=== PATIENT | female | born 1935 | race Caucasian/White ===

== ENCOUNTER 2021-03-28 08:33 | Outpatient (CLI) | payer MEDICARE, BC, SELFPAY ==
--- NOTE | 2021-03-28 09:00 | XR_ITS ---
WS: [id number] KNEE RIGHT TECHNIQUE: 3 views of the right knee CLINICAL INFORMATION: 6 weeks Rt knee pain COMPARISON: None. FINDINGS: Osteopenia. Moderate tricompartmental arthritis with joint space narrowing. Chondrocalcinosis. No acu te fractures. No significant effusion. XR/XR knee RT 3V* [id number] IMPRESSION: Moderate tricompartmental arthritis. No acute fractures. Kellgren-Roderick Classification: grade 3 (moderate): moderate multiple osteoph ytes, definite narrowing of joint space and some sclerosis and possible deformi ty of bone ends
== END 2021-03-28 08:34 | disposition home or self-care (01) ==
PROVIDERS: Visit Provider Family Medicine Adult Medicine
DX: M25.561 Pain in right knee (principal); M17.11 Unilateral primary osteoarthritis, right knee
CPT/HCPCS: 73562

== ENCOUNTER → 2021-04-19 10:13 | Outpatient (BNVA) | payer MEDICARE, BC, SELFPAY | PROVIDERS: PCP Family Medicine; Visit Provider Family Medicine | DX: I10 Essential (primary) hypertension (principal); M15.9 Polyosteoarthritis, unspecified; E66.9 Obesity, unspecified | CPT/HCPCS: 80053; 80061; 82043; 85025 ==

== ENCOUNTER → 2021-10-17 08:45 | Outpatient (BNVA) | payer MEDICARE, BC, SELFPAY | PROVIDERS: PCP Family Medicine; Visit Provider Family Medicine | DX: K21.9 Gastro-esophageal reflux disease without esophagitis (principal); F32.9 Major depressive disorder, single episode, unspecified; I10 Essential (primary) hypertension; R60.0 Localized edema; F32.89 Other specified depressive episodes; M15.9 Polyosteoarthritis, unspecified | CPT/HCPCS: 80048 ==

== ENCOUNTER → 2022-04-18 09:34 | Outpatient (BNVA) | payer MEDICARE, BC, SELFPAY | PROVIDERS: PCP Family Medicine; Visit Provider Family Medicine | DX: I10 Essential (primary) hypertension (principal); R53.83 Other fatigue | CPT/HCPCS: 80053; 80061; 84439; 84443; 85025 ==

== ENCOUNTER → 2022-07-22 10:31 | Outpatient (BNVA) | payer MEDICARE, BC, SELFPAY | PROVIDERS: PCP Family Medicine; Visit Provider Family Medicine | DX: E78.5 Hyperlipidemia, unspecified (principal) | CPT/HCPCS: 80061 ==

== ENCOUNTER → 2023-01-20 10:21 | Outpatient (BNVA) | payer MEDICARE, BC, SELFPAY | PROVIDERS: PCP Family Medicine; Visit Provider Family Medicine | DX: R60.0 Localized edema (principal); K21.9 Gastro-esophageal reflux disease without esophagitis; F32.9 Major depressive disorder, single episode, unspecified; I10 Essential (primary) hypertension | CPT/HCPCS: 80053 ==

== ENCOUNTER → 2023-07-16 10:57 | Outpatient (BNVA) | payer MEDICARE, BC, SELFPAY | PROVIDERS: PCP Family Medicine; Visit Provider Family Medicine | DX: I10 Essential (primary) hypertension (principal) | CPT/HCPCS: 80053; 80061; 82043; 85025 ==

== ENCOUNTER → 2024-03-29 12:44 | Outpatient (BNVA) | payer MEDICARE, BC, SELFPAY | PROVIDERS: PCP Family Medicine; Visit Provider Family Medicine | DX: R30.0 Dysuria (principal) | CPT/HCPCS: 81000; 87086 ==

== ENCOUNTER → 2024-06-21 13:40 | Outpatient (BNVA) | payer MEDICARE, BC, SELFPAY | PROVIDERS: PCP Family Medicine; Visit Provider Family Medicine | DX: I10 Essential (primary) hypertension (principal); K21.9 Gastro-esophageal reflux disease without esophagitis; N81.4 Uterovaginal prolapse, unspecified; R60.0 Localized edema | CPT/HCPCS: 80048; 85025 ==

== ENCOUNTER 2024-08-10 06:41 | Emergency (ER) | payer BC, MEDICARE, SELFPAY ==
[2024-08-10 06:45] VITALS: BP 129/74; PULSE 83; RESP 18; TEMP 36.7; O2SAT 90; BMI 31.2
--- NOTE | 2024-08-10 06:58 | XRR_ITS ---
PROCEDURE INFORMATION: Exam: XR Chest Exam date and time: 08/10/2024 7:35 AM Age: 88 years old Clinical indication: Other: Weakness TECHNIQUE: Imaging protocol: Radiologic exam of the chest. Views: 1 view. COMPARISON: No relevant prior studies available. FINDINGS: Lungs: The lungs are hyperinflated. No focal consolidation is appreciated. Pleural spaces: Unremarkable. No pleural effusion. No pneumothorax. Heart/Mediastinum: The heart is slightly enlarged. There is calcified plaque involving the aorta. Bones/joints: Unremarkable. XR/XR chest 1V portable [id number] IMPRESSION: 1. Mild cardiomegaly. 2. Lung hyperinflation.
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
[2024-08-10] MEDS: sodium chloride 0.9% 1,000 ML 999 ML IV (07:09)
[2024-08-10 07:11] LABS: Basophils % 0.5 %; Eosinophils % 0.9 %; Hematocrit 41.1 % (36-47); Lymphocytes # 0.9 10^3/uL (0.8-4.8); Lymphocytes % 20.6 %; Mean Corpuscular HGB Conc 34.1 g/dL (30-55); Mean Corpuscular Hemoglobin 30.1 pg (27-33); Mean Corpuscular Volume 88.4 fl (85-98); Mean Platelet Volume 9.9 fL (7.4-10.4); Monocytes # 0.4 10^3/uL (0.2-0.9); Monocytes % 7.9 %; Neutrophils # 3.07 10^3/uL (1.8-7.7); Neutrophils % 69.6 %; Nucleated Red Blood Cells % 0 %; Platelet Count 147 10^3/cmm (157-399); Red Blood Count 4.65 10^6/uL (3.85-5.65); Red Cell Distribution Width 12.7 % (12.1-15.1); White Blood Count 4.41 10^3/uL (3.29-11.43)
--- NOTE | 2024-08-10 07:19 | ECG_ITS ---
[facility] Date: 2024-08-10 Pat Name: Jillian Prado Department: Room: Gender: Female Ob/Gyn: : 1935 Requested By: Eliu Sagastume Order Number: [id number] Tea MD: Jesse Dorado M.D. Measurements Intervals [place] Rate: 73 P: 37 FL: 151 QRS: -4 QRSD: 96 T: 122 QT: 400 QTc: 442 Interpretive Statements SINUS RHYTHM WITH SINUS ARRHYTHMIA ST DEVIATION AND MODERATE T-WAVE ABNORMALITY, CONSIDER LATERAL ISCHEMIA [-0.1+ mV T-WAVE IN I/aVL/V5/V6] No previous ECG available for comparison Electronically Signed On 08-11-2024 11:16:23 PUPPY SITTER by Jesse Dorado M.D. [email or web address]
[2024-08-10 07:21] VITALS: BP 129/74; PULSE 76; RESP 18; O2SAT 89
[2024-08-10 07:25] LABS: Albumin Level 3.7 g/dL (3.5-5.2); Alkaline Phosphatase 61 U/L (35-105)
[2024-08-10 07:43] LABS: Alanine Aminotransferase 12 U/L (0-33); Anion Gap 16.2 (5-19); Aspartate Amino Transferase 22 U/L (0-32); Blood Urea Nitrogen 13 mg/dL (8-23); Calcium 9.2 mg/dL (8.5-10.5); Carbon Dioxide 23 mmol/L (22-29); Chloride 99 mmol/L (98-107); Creatinine Clr Calc Pharmacy 52.4675; Globulin 3.2 g/dL (1.3-4.6); Glucose 130 mg/dL (65-115); Lipase 39 U/L (13-60); Osmolality Calculated 282 mOsm/kg (285-295); Potassium 3.2 mmol/L (3.5-5.1); Sodium 135 mmol/L (136-145); Thyroid Stimulating Hormone 3.99 uIU/mL (0.27-4.20); Total Bilirubin 0.6 mg/dL (0.15-1.2); Total Protein 6.9 g/dL (6.6-8.7)
[2024-08-10 07:57] VITALS: BP 133/57; PULSE 70; RESP 16; O2SAT 90
[2024-08-10 08:06] LABS: Covid PCR NEGATIVE (Negative); Influenza A POSITIVE (Negative); Influenza B NEGATIVE (Negative); Respiratory Syncytial Virus Ce NEGATIVE (Negative)
[2024-08-10 08:19] LABS: Bilirubin Urine Negative (Negative); Blood Urine Negative (Negative); Glucose Urine UA Negative (Normal); Ketones Urine Negative (Negative); Leukocyte Esterase Urine Negative (Negative); Nitrate Urine Negative (Negative); Protein Urine 3+ (Negative); Specific Gravity, Urine 1.023 (1.005-1.030); Urine Appearance Clear (CLEAR); Urine Color Yellow (Yellow); Urobilinogen Urine 0.2 mg/dL (Negative); pH Urine 5.5 (5-7)
[2024-08-10 08:24] LABS: Add Urine Microscopic? YES; Bacteria Urine None Seen /hpf; Hyaline Casts Urine 5.36 /lpf; RBC Urine 0-2 /hpf (0-2); Squamous Epithelial Cell Urine 0-5 /hpf (0-5); WBC Urine 0-5 /hpf (0-5)
[2024-08-10 08:39] VITALS: BP 142/79; PULSE 70; RESP 16; O2SAT 92
[2024-08-10 08:42] LABS: UA Slide Review UA Slide Review Perf
[2024-08-10] MEDS: dexamethasone 4 mg/mL INJ 8 MG IVP (08:44)
== END 2024-08-10 08:48 | disposition home or self-care (01) ==
PROVIDERS: Emergency Provider Emergency Medicine; PCP Family Medicine
DX: R53.1 Weakness (principal); Z11.52 Encounter for screening for COVID-19; E78.5 Hyperlipidemia, unspecified; I10 Essential (primary) hypertension
CPT/HCPCS: 71045; 80053; 81001; 83690; 84443; 85025; 87637; 93005; 96361; 96374; 99285; J1100; J7030

== ENCOUNTER 2024-08-14 19:33 | Inpatient (IN) | payer MEDICARE, BC, SELFPAY ==
[2024-08-14] VITALS (22 sets, daily range): BP systolic 97–119; BP diastolic 48–64; PULSE 72–99; RESP 16–35; TEMP 38.2; O2SAT 91–95; BMI 31.1
--- NOTE | 2024-08-14 19:35 | XRR_ITS ---
PROCEDURE INFORMATION: Exam: XR Chest Exam date and time: 08/14/2024 7:39 PM Age: 88 years old Clinical indication: Weakness; SOB; Cough TECHNIQUE: Imaging protocol: Radiologic exam of the chest. Views: 1 view. COMPARISON: CR (CHEST, ) 08/10/2024 7:35 AM FINDINGS: Lungs: Left mid to lower lung field bronchopneumonia. Emphysematous changes. Pleural spaces: Unremarkable. No pleural effusion. No pneumothorax. Heart/Mediastinum: Cardiomegaly. Vasculature: Aortic atherosclerotic calcifications. Bones/joints: Unremarkable. XR/XR chest 1V portable [id number] IMPRESSION: 1. Left mid to lower lung field bronchopneumonia. 2. Emphysematous changes. 3. Cardiomegaly. 4. Aortic atherosclerotic calcifications.
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
[2024-08-14 19:52] LABS: Basophils % 0.9 %; Eosinophils % 0.9 %; Hematocrit 42.2 % (36-47); Lymphocytes # 0.4 10^3/uL (0.8-4.8); Mean Corpuscular HGB Conc 33.6 g/dL (30-55); Mean Corpuscular Hemoglobin 29.8 pg (27-33); Mean Corpuscular Volume 88.7 fl (85-98); Monocytes % 0.9 %; Neutrophils % 62.4 %; Nucleated Red Blood Cells % 0 %; Platelet Count 129 10^3/cmm (157-399); Red Blood Count 4.76 10^6/uL (3.85-5.65); Red Cell Distribution Width 12.9 % (12.1-15.1); White Blood Count 1.06 10^3/uL (3.29-11.43)
[2024-08-14] MEDS: lactated ringers 1,000 ML 999 ML IV (19:53)
[2024-08-14 19:54] LABS: Neutrophils # 0.66 10^3/uL (1.8-7.7)
[2024-08-14 20:10] LABS: Alanine Aminotransferase 13 U/L (0-33); Albumin Level 3.3 g/dL (3.5-5.2); Alkaline Phosphatase 78 U/L (35-105); Aspartate Amino Transferase 21 U/L (0-32); Blood Urea Nitrogen 17 mg/dL (8-23); C Reactive Protein 194.3 mg/L (0.0-4.9); Calcium 8.9 mg/dL (8.5-10.5); Carbon Dioxide 22 mmol/L (22-29); Chloride 99 mmol/L (98-107); Creatinine Clr Calc Pharmacy 34.0525; Globulin 3.2 g/dL (1.3-4.6); Glucose 145 mg/dL (65-115); Osmolality Calculated 294 mOsm/kg (285-295); Sodium 140 mmol/L (136-145); Total Bilirubin 0.9 mg/dL (0.15-1.2); Total Protein 6.5 g/dL (6.6-8.7)
[2024-08-14 20:15] LABS: Lactic Sepsis W/Reflex 5.3 mmol/L (0.5-2.2)
[2024-08-14] MEDS: piperacillin-tazobactam 4.5 GM in sodium chloride 0.9% (plus) 50 ML IV (20:20)
[2024-08-14 20:33] LABS: Reflex Lactate Order REFLEX LACTIC ORDERD
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
[2024-08-14 22:30] LABS: Procalcitonin 56.53 ng/mL (0-0.5)
[2024-08-14 22:42] LABS: Lactic Acid level (Lactate) 1.9 mmol/L (0.5-2.2)
[2024-08-14] MEDS: potassium chloride oral liq 20 mEq/15 mL UDC 40 MEQ PO (22:49)
[2024-08-14] MEDS: sodium chloride 0.9% 1,000 ML 999 ML IV (22:50)
[2024-08-14] MEDS: morphine IR 15 mg Tablet PO (23:36)
[2024-08-14] MEDS: dexamethasone 10 mg/mL INJ 6 MG IVP (23:37)
[2024-08-14] MEDS: heparin 5,000 unit/mL INJ 1 mL 5000 UNIT SUBCUT (23:37)
[2024-08-15] VITALS (10 sets, daily range): BP systolic 105–156; BP diastolic 64–74; PULSE 63–88; RESP 16–18; TEMP 36.4–37.1; O2SAT 92–96
[2024-08-15] MEDS: sodium chloride 0.9% 1,000 ML 75 ML IV (00:06)
[2024-08-15] MEDS: FUROsemide 10 mg/mL SDV 2mL 20 MG IVP (00:49)
[2024-08-15 01:15] LABS: MRSA PCR OZH (swab) NOT DETECTED (Not Detecte)
[2024-08-15 03:37] LABS: Bilirubin Urine Negative (Negative); Blood Urine Negative (Negative); Glucose Urine UA Negative (Normal); Ketones Urine Negative (Negative); Leukocyte Esterase Urine 1+ (Negative); Nitrate Urine Positive (Negative); Protein Urine 3+ (Negative); Urine Appearance Cloudy (CLEAR); Urine Color Yellow (Yellow); Urobilinogen Urine 0.2 mg/dL (Negative)
[2024-08-15 03:39] LABS: Add Urine Microscopic? YES; Bacteria Urine 4+ /hpf; Hyaline Casts Urine 11.57 /lpf; RBC Urine 0-2 /hpf (0-2); Universal Test for UA Present (0); WBC Urine 21-50 /hpf (0-5)
[2024-08-15 03:59] LABS: Add Urine Culture? Yes
[2024-08-15 05:40] LABS: Basophils % 0.2 %; Eosinophils % 0.1 %; Hematocrit 36.9 % (36-47); Lymphocytes # 0.4 10^3/uL (0.8-4.8); Lymphocytes % 2.6 %; Mean Corpuscular HGB Conc 33.6 g/dL (30-55); Mean Corpuscular Hemoglobin 30.3 pg (27-33); Mean Corpuscular Volume 90.2 fl (85-98); Monocytes # 0.3 10^3/uL (0.2-0.9); Monocytes % 2.2 %; Neutrophils # 12.77 10^3/uL (1.8-7.7); Neutrophils % 91.5 %; Nucleated Red Blood Cells % 0 %; Platelet Count 89 10^3/cmm (157-399); Red Blood Count 4.09 10^6/uL (3.85-5.65); White Blood Count 13.95 10^3/uL (3.29-11.43)
[2024-08-15 05:51] LABS: Anion Gap 17.7 (5-19); Blood Urea Nitrogen 20 mg/dL (8-23); C Reactive Protein 196.8 mg/L (0.0-4.9); Calcium 8.1 mg/dL (8.5-10.5); Carbon Dioxide 23 mmol/L (22-29); Chloride 101 mmol/L (98-107); Creatinine Clr Calc Pharmacy 34.0525; Glucose 184 mg/dL (65-115); Magnesium 1.4 mg/dL (1.7-2.3); Osmolality Calculated 293 mOsm/kg (285-295); Phosphorus 3.1 mg/dL (2.5-4.5); Potassium 3.7 mmol/L (3.5-5.1); Sodium 138 mmol/L (136-145)
[2024-08-15 05:54] LABS: Slide Review Slide Review Perform
[2024-08-15] MEDS: ipratropium-albuterol 3 mL Neb INHALATION ×2 (07:59→20:27)
[2024-08-15] MEDS: budesonide 0.5 mg/2 mL Neb INHALATION ×2 (08:00→20:27)
[2024-08-15] MEDS: magnesium sulfate premix 2 GM/50 ML PIGGYBACK IV (08:13)
[2024-08-15] MEDS: cefTRIAXone 1,000 MG in sodium chloride 0.9% (plus) 50 ML 100 MG IV (08:14)
[2024-08-15] MEDS: doxycycline 100 mg Tablet PO ×2 (08:14→17:21)
--- NOTE | 2024-08-15 09:03 | P.PN_ITS ---
Subjective 2 Subjective: She is feeling slightly better. Did well with breathing treatment. He still requiring 2 L nasal cannula oxygen, not normally on oxygen. Vitals/I&O/Wt Last Vital Signs Temp 97.6 F 08/15/24 07:40 Pulse 75 08/15/24 08:00 Resp 16 08/15/24 08:00 BP 114/64 08/15/24 07:40 Pulse Ox 95 08/15/24 08:00 O2 Del Method Nasal Cannula 08/15/24 08:00 O2 Flow Rate 2 08/15/24 08:00 08/14/24 08/15/24 08/15/24 22:59 06:59 14:59 Intake Total 125 / 125 2070 / 2195 50 / 50 Output Total 400 / 400 Balance 125 / 125 1670 / 1795 50 / 50 Weight last 48 hrs Weight 81.647 kg Weight 81.647 kg Physical Exam 2 Const: COMMON NORMALS: patient oriented x3 and alert GENERAL APPEARANCE: c ooperative ORIENTATION/CONSCIOUSNESS: Yes awake HENMT: COMMON NORMALS: oropharynx normal Neck/C-Spine: COMMON NORMALS: no JVD Resp: COMMON NORMALS: normal respiratory effort and clear to auscultation bilaterally AUSCULTATION: clear to auscultation bilaterally Cardio: COMMON NORMALS: no JVD, regular rhythm, S1 normal heart sound present, S2 normal heart sound present and No murmurs present (Cardio) RHYTHM: regular rhythm HEART SOUNDS: S1 normal heart sound present and S2 normal heart sound present GI: COMMON NORMALS: Normal to inspection, nondistended, normoactive bowel sounds present, Soft to palpation and non-tender PALPATION: Yes Soft to palpation Extremity: COMMON NORMALS: no joint enlargement and no pedal edema Neuro: COMMON NORMALS: patient oriented x3 and moves all extremities S ENSORIUM/ORIENTATION: Yes alert Skin: COMMON NORMALS: no rashes or lesions noted GENERAL SKIN EXAM: no rashes or lesions noted Data 08/15/24 05:15 08/15/24 05:15 Micro: Microbiology 08/14/24 20:14 Blood Culture - Preliminary Blood SPECIMEN COLLECTED 08/14/24 20:19 Blood Culture - Preliminary Blood SPECIMEN COLLECTED A&P Assessment and plan (1) Cystocele with prolapse: (2) Weakness: (3) Sepsis: (4) Pneumonia: (5) ANNALISA (acute kidney injury): (6) Hypoxia: Plan Sepsis Reviewed vitals, CBC, CMP, lactic acid, procalcitonin, CRP, UA, chest x-ray. Discussed with she did well with breathing treatment. Still continues to require 2 L nasal cannula oxygen. Not normally on oxygen. Discussed with nursing, case resource manager. Continue treatment of pneumonia, UTI. Reviewed blood culture, urine culture. Cell count with improvement, neutrophils up to 12.77. WBC elevated at 13.95 this morning. Platelets down to 89. CMP appears similar to yesterday. Will need repeat CBC. Continue antibiotics ceftriaxone and doxycycline Follow-up MRSA PCR Patient was diagnosed with viral infection 08/10 Concern for postviral bacterial pneumonia Cover MRSA with doxycycline DuoNeb, budesonide Acute hypoxia related to pneumonia and fluid Currently on 2 L nasal cannula Symptoms started 2 weeks ago, diagnosed with flu 08/10 Would not start Tamiflu at this point Severe neutropenia related to viral infection: Reviewed ANC, improved up to 12.77. Over the platelets, down to 89. WBC up at 13.95. Still lymphopenic, 0.4. Repeat blood counts. Did receive a dose of Decadron. ANNALISA was thought related to dehydration. Creatinine reviewed, 1.2. Baseline 0.7. BUN is 20. Potassium is normal. Reassess renal function. Hold nephrotoxic agent such as telmisartan and Lasix that she takes at home Hypokalemia: Replenished Hypomagnesemia: Requested replacement. High anion gap without significant acidosis related to combination of vomiting with diarrhea. History of cystocele: Urinary incontinence is chronic Goals of care: she does not want to be intubated however agreeable for chest compressions, ICU admission, Levophed and defibrillation daughter is at the bedside who is medical DPOA Attestations 2 Medical Necessity Statement*: Continue admission for assessment management of improving sepsis, pneumonia, UTI in an elderly lady with severe neutropenia on presentation, ANNALISA, additional comorbidities as above. and High MDM includes amount and/or complexity of data reviewed/ordered [ resulted lab(s)/test(s), ordered lab(s)/test(s) and other healthcare professional discussion] as documented Diagnoses Cystocele with prolapse N81.4 Weakness R53.1 Sepsis A41.9 Pneumonia J18.9 ANNALISA (acute kidney injury) N17.9 Hypoxia R09.02
[2024-08-15] MEDS: heparin 5,000 unit/mL INJ 1 mL 5000 UNIT SUBCUT ×2 (11:17→22:19)
[2024-08-15] MEDS: trazodone 50 mg Tablet PO (21:09)
[2024-08-16] VITALS (9 sets, daily range): BP systolic 123–149; BP diastolic 52–87; PULSE 62–77; RESP 16–18; TEMP 36.3–37.1; O2SAT 94–97
[2024-08-16] MEDS: budesonide 0.5 mg/2 mL Neb INHALATION ×2 (07:48→20:13)
[2024-08-16] MEDS: ipratropium-albuterol 3 mL Neb INHALATION ×2 (07:48→20:13)
[2024-08-16 08:38] LABS: Basophils % 0.2 %; Eosinophils % 0.2 %; Hematocrit 37.9 % (36-47); Lymphocytes # 1.1 10^3/uL (0.8-4.8); Lymphocytes % 8.3 %; Mean Corpuscular HGB Conc 32.2 g/dL (30-55); Mean Corpuscular Hemoglobin 29.6 pg (27-33); Mean Platelet Volume 12.8 fL (7.4-10.4); Monocytes # 0.9 10^3/uL (0.2-0.9); Neutrophils # 10.68 10^3/uL (1.8-7.7); Neutrophils % 81.2 %; Nucleated Red Blood Cells % 0 %; Platelet Count 92 10^3/cmm (157-399); Red Blood Count 4.12 10^6/uL (3.85-5.65); Red Cell Distribution Width 13.2 % (12.1-15.1); White Blood Count 13.14 10^3/uL (3.29-11.43)
[2024-08-16] MEDS: cefTRIAXone 1,000 MG in sodium chloride 0.9% (plus) 50 ML 100 MG IV (08:48)
[2024-08-16] MEDS: doxycycline 100 mg Tablet PO ×2 (08:48→16:55)
[2024-08-16 08:56] LABS: Alanine Aminotransferase 12 U/L (0-33); Albumin Level 2.6 g/dL (3.5-5.2); Alkaline Phosphatase 68 U/L (35-105); Anion Gap 14.4 (5-19); Aspartate Amino Transferase 15 U/L (0-32); Blood Urea Nitrogen 18 mg/dL (8-23); Calcium 8.9 mg/dL (8.5-10.5); Carbon Dioxide 23 mmol/L (22-29); Chloride 103 mmol/L (98-107); Creatinine Clr Calc Pharmacy 51.0787; Globulin 2.9 g/dL (1.3-4.6); Glucose 154 mg/dL (65-115); Osmolality Calculated 289 mOsm/kg (285-295); Potassium 3.4 mmol/L (3.5-5.1); Sodium 137 mmol/L (136-145); Total Bilirubin 0.4 mg/dL (0.15-1.2); Total Protein 5.5 g/dL (6.6-8.7)
--- NOTE | 2024-08-16 09:54 | CT_ITS ---
WS: [id number] CT ABDOMEN AND PELVIS NONCONTRAST HISTORY: E coli bacteremia, UTI TECHNIQUE: Imaging performed through the abdomen and pelvis. Coronal and sagittal reformats are submitted. All CT scans at [facility] use at least one of these dose optimization techniques: automated exposure control; mA and/or kV adjustment per patient size (includes targeted exams where dose is matched to clinical indication); or iterative reconstruction. DLP: 548.90 mGy.cm COMPARISON: None available. Lower thorax: Mild dependent changes at the lung bases and bronchiectasis. Small hiatal hernia. Mild cardiomegaly. Liver: Normal size liver. No mass or bile duct dilatation. Gallbladder: Cholelithiasis without acute cholecystitis. Gallbladder is contracted around the cholelithiasis. No adjacent inflammation. Pancreas: Moderate diffuse pancreatic atrophy. No pancreatic duct dilatation. Spleen: Normal. Adrenal glands: Normal. No mass. Right kidney: Mild perinephric stranding. No obstruction. Left kidney: Mild perinephric stranding with no obstruction. Aorta: Moderate to severe atherosclerosis abdominal aorta. No aneurysm. Atherosclerosis continues into the common iliac arteries. No free fluid, intraperitoneal air or significant lymphadenopathy. GI tract: Nondistended stomach. No small bowel obstruction. No appendicitis. No diverticulitis. Abdominal wall: Negative. No hernia. Pelvis: Urinary bladder is well distended. No free fluid or adenopathy. Prior hysterectomy. Increased soft tissue in the perineum. Correlate for possible rectal or vaginal prolapse. Osseous structures: RIGHT hip pinning. CT/CT kidney stone 72017 IMPRESSION: 1. No renal or ureteral obstruction. 2. Very minimal bilateral perinephric stranding. 3. Well distended urinary bladder with no calcifications. 4. No GI tract obstruction. 5. No ascites or adenopathy. 6. Cholelithiasis within a contracted gallbladder. 7. Increased soft tissue in the perineum. Correlate for possible rectal prolap se.
[2024-08-16] MEDS: heparin 5,000 unit/mL INJ 1 mL 5000 UNIT SUBCUT ×2 (11:13→22:25)
--- NOTE | 2024-08-16 17:09 | P.PN_ITS ---
Subjective 2 Subjective: She is still feeling weak. Some malaise. Some pain/discomfort in her upper back. Vitals/I&O/Wt Last Vital Signs Temp 97.6 F 08/16/24 15:22 Pulse 66 08/16/24 15:22 Resp 16 08/16/24 15:22 BP 149/75 08/16/24 15:22 Pulse Ox 96 08/16/24 15:22 O2 Del Method Nasal Cannula 08/16/24 15:22 O2 Flow Rate 2 08/16/24 07:50 08/16/24 08/16/24 08/16/24 06:59 14:59 22:59 Intake Total 290 / 290 Output Total 240 / 240 Balance 50 / 50 Weight last 48 hrs Weight 81.647 kg Weight 81.647 kg Weight 81.647 kg Physical Exam 2 Narrative: Accompanied by her daughter on second visit. Const: COMMON NORMALS: patient oriented x3 and alert GENERAL APPEARANCE: c ooperative ORIENTATION/CONSCIOUSNESS: Yes awake HENMT: COMMON NORMALS: oropharynx normal Neck/C-Spine: COMMON NORMALS: no JVD Resp: COMMON NORMALS: normal respiratory effort and clear to auscultation bilaterally AUSCULTATION: clear to auscultation bilaterally Cardio: COMMON NORMALS: no JVD, regular rhythm, S1 normal heart sound present, S2 normal heart sound present and No murmurs present (Cardio) RHYTHM: regular rhythm HEART SOUNDS: S1 normal heart sound present and S2 normal heart sound present GI: COMMON NORMALS: Normal to inspection, nondistended, normoactive bowel sounds present, Soft to palpation and non-tender PALPATION: Yes Soft to palpation Extremity: COMMON NORMALS: no joint enlargement and no pedal edema Neuro: COMMON NORMALS: patient oriented x3 and moves all extremities S ENSORIUM/ORIENTATION: Yes alert Skin: COMMON NORMALS: no rashes or lesions noted GENERAL SKIN EXAM: no rashes or lesions noted Data 08/16/24 08:24 08/16/24 08:24 Micro: Microbiology 08/15/24 03:20 Urine Culture - Preliminary Urine,Clean Catch Gram Negative Rods 08/14/24 20:14 Blood Culture - Preliminary Blood NEGATIVE TO DATE 08/14/24 20:19 Blood Culture - Preliminary Blood Escherichia coli A&P Assessment and plan (1) Cystocele with prolapse: (2) Weakness: (3) Sepsis: (4) Pneumonia: (5) ANNALISA (acute kidney injury): (6) Hypoxia: Plan Sepsis: She is still some malaise reviewed vitals,Generally weak, with CBC, chemistry, reviewed blood culture, urine culture. Noted with gram-negative louis bacteremia, complicated UTI. GNR in blood and identified as E. coli. Reviewed urine culture, order 100,000 gram-negative rods. Pending education. Discussed with her and her daughter, continue antibiotic coverage with ceftriaxone, doxycycline. Follow-up culture results. Discussed with nurse, rn case management. Discharge for now is deferred due to overall condition, pending further workup of complicated UTI, bacteremia. Additionally as per discussion with her and staff due to complicated GI requested assessment with kidney stone protocol CT. Neutropenia reassess, so far resolved. Continue antibiotics ceftriaxone and doxycycline Follow-up MRSA PCR Patient was diagnosed with viral infection 08/10 Concern for postviral bacterial pneumonia Cover MRSA with doxycycline DuoNeb, budesonide Acute hypoxia related to pneumonia and fluid: Continue treatment of pneumonia. Continue ceftriaxone, doxycycline. Continue to wean off oxygen. Still requiring oxygen currently. Currently on 2 L nasal cannula Symptoms started 2 weeks ago, diagnosed with flu 08/10 Would not start Tamiflu at this point RSV infection: Continue supportive measures Severe neutropenia related to viral infection: Reviewed ANC, resolved neutropenia. Reassess CBC. ANNALISA was thought related to dehydration. Reviewed renal function, resolved with ANNALISA. Reassess renal function. Hold nephrotoxic agent such as telmisartan and Lasix that she takes at home Hypokalemia: Requested additional replacement. Check magnesium. Hypomagnesemia: Recheck level High anion gap without significant acidosis related to combination of vomiting with diarrhea. History of cystocele: Urinary incontinence is chronic Goals of care: she does not want to be intubated however agreeable for chest compressions, ICU admission, Levophed and defibrillation daughter is at the bedside who is medical DPOA PDMP PDMP Reviewed: Not Reviewed Attestations 2 Medical Necessity Statement*: Continue admission for assessment management of complicated UTI, with E. coli bacteremia. and High MDM includes amount and/or complexity of data reviewed/ordered [ resulted lab(s)/test(s), ordered lab(s)/test(s) and other healthcare professional discussion] as documented Diagnoses Cystocele with prolapse N81.4 Weakness R53.1 Sepsis A41.9 Pneumonia J18.9 ANNALISA (acute kidney injury) N17.9 Hypoxia R09.02
[2024-08-16] MEDS: potassium chloride ER 20 mEq Tablet PO (17:41)
[2024-08-16] MEDS: trazodone 50 mg Tablet PO (22:26)
[2024-08-17] VITALS (10 sets, daily range): BP systolic 121–174; BP diastolic 61–84; PULSE 63–73; RESP 15–18; TEMP 36.4–37.1; O2SAT 87–96
[2024-08-17 06:29] LABS: Anion Gap 12.5 (5-19); Blood Urea Nitrogen 15 mg/dL (8-23); Calcium 9.1 mg/dL (8.5-10.5); Carbon Dioxide 26 mmol/L (22-29); Chloride 106 mmol/L (98-107); Creatinine Clr Calc Pharmacy 51.0787; Glucose 107 mg/dL (65-115); Magnesium 1.7 mg/dL (1.7-2.3); Osmolality Calculated 293 mOsm/kg (285-295); Potassium 3.5 mmol/L (3.5-5.1); Sodium 141 mmol/L (136-145)
[2024-08-17 07:02] LABS: Basophils % 0.3 %; Eosinophils # 0.1 10^3/uL (0.0-0.8); Eosinophils % 0.7 %; Lymphocytes # 1.1 10^3/uL (0.8-4.8); Lymphocytes % 15.6 %; Mean Corpuscular HGB Conc 33.1 g/dL (30-55); Mean Corpuscular Hemoglobin 30.4 pg (27-33); Mean Corpuscular Volume 91.9 fl (85-98); Monocytes # 0.6 10^3/uL (0.2-0.9); Monocytes % 8.6 %; Neutrophils # 5.28 10^3/uL (1.8-7.7); Neutrophils % 74.1 %; Nucleated Red Blood Cells % 0 %; Platelet Count 123 10^3/cmm (157-399); Red Blood Count 3.81 10^6/uL (3.85-5.65); Red Cell Distribution Width 13.4 % (12.1-15.1); White Blood Count 7.12 10^3/uL (3.29-11.43)
[2024-08-17] MEDS: ipratropium-albuterol 3 mL Neb INHALATION (08:44)
[2024-08-17] MEDS: budesonide 0.5 mg/2 mL Neb INHALATION ×2 (08:44→21:18)
[2024-08-17] MEDS: doxycycline 100 mg Tablet PO ×2 (09:22→16:52)
[2024-08-17] MEDS: cefTRIAXone 1,000 MG in sodium chloride 0.9% (plus) 50 ML 100 MG IV (09:23)
[2024-08-17] MEDS: sennosides-docusate Tablet 1 TAB PO (09:23)
[2024-08-17] MEDS: magnesium sulfate premix 2 GM/50 ML PIGGYBACK IV (11:34)
[2024-08-17] MEDS: heparin 5,000 unit/mL INJ 1 mL 5000 UNIT SUBCUT ×2 (11:34→22:13)
--- NOTE | 2024-08-17 12:12 | PC.SOCIAL ---
IMM Update pg 2 of IMM Updated and reviewed w/ patient. Copy provided and copy dated, initialed and placed in chart.
--- NOTE | 2024-08-17 18:32 | P.PN_ITS ---
Subjective 2 Subjective: She is overall still feeling generally weak. Without development of any new symptoms. No specific pain or discomfort. 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 Has not been having any overt rectal prolapse. Vitals/I&O/Wt Last Vital Signs Temp 98.7 F 08/17/24 17:00 Pulse 63 08/17/24 17:00 Resp 18 08/17/24 17:00 BP 122/78 08/17/24 17:00 Pulse Ox 93 08/17/24 17:00 O2 Del Method Room Air 08/17/24 08:55 O2 Flow Rate 1 08/17/24 08:44 08/17/24 08/17/24 08/17/24 06:59 14:59 22:59 Intake Total 360 / 1130 700 / 700 360 / 1060 Output Total 300 / 840 Balance 60 / 290 700 / 700 360 / 1060 Weight last 48 hrs Weight 81.647 kg Weight 81.647 kg Physical Exam 2 Narrative: Accompanied by her daughter and another family member. Const: COMMON NORMALS: patient oriented x3 and alert GENERAL APPEARANCE: c ooperative ORIENTATION/CONSCIOUSNESS: Yes awake HENMT: COMMON NORMALS: oropharynx normal Neck/C-Spine: COMMON NORMALS: no JVD Resp: COMMON NORMALS: normal respiratory effort and clear to auscultation bilaterally AUSCULTATION: clear to auscultation bilaterally Cardio: COMMON NORMALS: no JVD, regular rhythm, S1 normal heart sound present, S2 normal heart sound present and No murmurs present (Cardio) RHYTHM: regular rhythm HEART SOUNDS: S1 normal heart sound present and S2 normal heart sound present GI: COMMON NORMALS: Normal to inspection, nondistended, normoactive bowel sounds present, Soft to palpation and non-tender PALPATION: Yes Soft to palpation Extremity: COMMON NORMALS: no joint enlargement and no pedal edema Neuro: COMMON NORMALS: patient oriented x3 and moves all extremities S ENSORIUM/ORIENTATION: Yes alert Skin: COMMON NORMALS: no rashes or lesions noted GENERAL SKIN EXAM: no rashes or lesions noted Data 08/17/24 05:28 08/17/24 05:28 Micro: Microbiology 08/15/24 03:20 Urine Culture - Final Urine,Clean Catch Escherichia coli 08/14/24 20:19 Blood Culture - Preliminary Blood Escherichia coli A&P Assessment and plan (1) Cystocele with prolapse: (2) Weakness: (3) Sepsis: (4) Pneumonia: (5) ANNALISA (acute kidney injury): (6) Hypoxia: Plan Sepsis: So far appears to be resolved. Leukocytosis on review today is normalized. She is afebrile, without tachycardia. Overall still feeling generally weak. Reviewed blood culture, without change so far, reviewed urine culture, resulted positive for E. coli, more than 100,000 CFU, resistant to Unasyn, intermediate to Augmentin, same resistances as blood organism. Discussed with her and her family. With bacteremia, still symptomatic with generalized weakness, she is concerned about going home today. We will continue with IV antibiotics for today, at discharge will transition to oral antibiotic regimen. Follow-up vitals, repeat CBC, chemistry. Continue antibiotics ceftriaxone and doxycycline Follow-up MRSA PCR Patient was diagnosed with viral infection 08/10 Concern for postviral bacterial pneumonia Cover MRSA with doxycycline DuoNeb, budesonide Discussed with nursing, bottle caser. Hypomagnesemia: Will give 2 g replacement. Recheck magnesium level. Acute hypoxia related to pneumonia and fluid:Hypoxia with gradual improvement, she has been weaning down on oxygen requirement. Came down to 1 L initially and then down to room air. Reassess. Home oxygen evaluation prior to discharge. Will request with anticipated discharge tomorrow morning. Continue treatment of pneumonia. Continue ceftriaxone, doxycycline. Continue to wean off oxygen. Still requiring oxygen currently. Currently on 2 L nasal cannula Symptoms started 2 weeks ago, diagnosed with flu 08/10 Would not start Tamiflu at this point RSV infection: Continue supportive measures Severe neutropenia related to viral infection: Resolved.Reviewed ANC, resolved neutropenia. Reassess CBC. ANNALISA was thought related to dehydration. Resolved.Reviewed renal function, resolved with ANNALISA. Reassess renal function. Hold nephrotoxic agent such as telmisartan and Lasix that she takes at home Hypokalemia: Recheck chemistry. Replace magnesium.Requested additional replacement. Check magnesium. High anion gap without significant acidosis related to combination of vomiting with diarrhea. History of cystocele: Urinary incontinence is chronic Goals of care: she does not want to be intubated however agreeable for chest compressions, ICU admission, Levophed and defibrillation daughter is at the bedside who is medical DPOA PDMP PDMP Reviewed: Not Reviewed Attestations 2 Medical Necessity Statement*: Continue admission for assessment management after sepsis, with complicated UTI, with E. coli bacteremia, resolving hypoxia with improving pneumonia. Diagnoses Cystocele with prolapse N81.4 Weakness R53.1 Sepsis A41.9 Pneumonia J18.9 ANNALISA (acute kidney injury) N17.9 Hypoxia R09.02
[2024-08-17] MEDS: trazodone 50 mg Tablet PO (22:18)
[2024-08-18 00:09] VITALS: BP 153/71; PULSE 73; RESP 18; TEMP 36.6; O2SAT 97
[2024-08-18 02:47] LABS: Basophils % 0.5 %; Eosinophils # 0.1 10^3/uL (0.0-0.8); Eosinophils % 1.6 %; Hematocrit 35.5 % (36-47); Lymphocytes # 1.3 10^3/uL (0.8-4.8); Lymphocytes % 23.8 %; Mean Corpuscular HGB Conc 32.4 g/dL (30-55); Mean Corpuscular Hemoglobin 29.3 pg (27-33); Mean Corpuscular Volume 90.6 fl (85-98); Mean Platelet Volume 11.4 fL (7.4-10.4); Monocytes # 0.6 10^3/uL (0.2-0.9); Monocytes % 10.5 %; Neutrophils # 3.44 10^3/uL (1.8-7.7); Neutrophils % 62.7 %; Nucleated Red Blood Cells % 0 %; Platelet Count 148 10^3/cmm (157-399); Red Blood Count 3.92 10^6/uL (3.85-5.65); Red Cell Distribution Width 13.2 % (12.1-15.1)
[2024-08-18 03:05] LABS: Anion Gap 11.5 (5-19); Blood Urea Nitrogen 15 mg/dL (8-23); Carbon Dioxide 29 mmol/L (22-29); Chloride 107 mmol/L (98-107); Creatinine Clr Calc Pharmacy 51.0787; Glucose 127 mg/dL (65-115); Osmolality Calculated 300 mOsm/kg (285-295); Potassium 3.5 mmol/L (3.5-5.1); Sodium 144 mmol/L (136-145)
[2024-08-18 03:10] LABS: Magnesium 1.7 mg/dL (1.7-2.3)
[2024-08-18 03:56] VITALS: BP 163/79; PULSE 64; RESP 18; TEMP 36.7; O2SAT 97
[2024-08-18 07:34] VITALS: BP 142/90; PULSE 65; TEMP 36.9; O2SAT 98
[2024-08-18 08:00] VITALS: PULSE 65; RESP 14; O2SAT 95
[2024-08-18] MEDS: ipratropium-albuterol 3 mL Neb INHALATION (08:06)
[2024-08-18] MEDS: budesonide 0.5 mg/2 mL Neb INHALATION (08:06)
[2024-08-18] MEDS: cefTRIAXone 1,000 MG in sodium chloride 0.9% (plus) 50 ML 100 MG IV (08:37)
[2024-08-18] MEDS: sennosides-docusate Tablet 1 TAB PO (08:37)
[2024-08-18] MEDS: doxycycline 100 mg Tablet PO (08:37)
--- NOTE | 2024-08-18 09:43 | P.DS_ITS ---
Discharge Providers Date of Admission: 08/14/24 21:59 Date of Discharge: August 18, 2024 Attending Provider at Admission: Augusta Barraza MD Attending Provider at Discharge: Froilan Brown Primary Care Provider: Evelyn Jackson MD Diagnoses at Discharge Discharge Diagnosis (1) Cystocele with prolapse: Status: Chronic (2) Weakness: Status: Inactive (3) Sepsis: Status: Acute (4) Pneumonia: Status: Acute (5) ANNALISA (acute kidney injury): Status: Acute (6) Hypoxia: Status: Acute Reason for Visit Reason for Visit: SEPSIS Brief History: Jillian Prado is a 88 year old female who lives alone, does not have significant past medical history presented for worsening of nausea vomiting diarrhea dehydration related to influenza A. Her influenza A was diagnosed 08/10 she was discharged home. She is returning with worsening of her symptoms with fever nausea vomiting and diarrhea. She had 1 syncopal event this morning as well. She is otherwise independent for her daily activities, daughter checks on her. No history of CHF OH stroke or cancer. In the ER workup consistent with severe neutropenia, sepsis, community-acquired pneumonia left-sided infiltrate, she has been given septic bolus along antibiotics. Patient is awake and alert a ble to write HPI. Patient is stating that she has had multiple episode of diarrhea associated with nausea and vomiting. She is endorsing subjective fevers but did not take her temperature. Electrolytes are imbalance potassium 3.0. ANNALISA with creatinine 1.2. Lactic acid 4.3 which improved after IV fluid hydration. CRP is extremely high. Procalcitonin 56.5 concern for superimposed bacterial pneumonia. Hospital Course Hospital Course She was admitted and treated with finding of RSV infection, secondary bacterial pneumonia, urinary tract infection, as well as ANNALISA, lactic acidosis, with new hypoxia, on presentation with severe neutropenia related to viral infection, hypokalemia, hypomagnesemia required replacement of hospitalization. Blood counts were repeated and her bone marrow rebounded. She was treated with ceftriaxone azithromycin for secondary pneumonia, urinary tract infection. Continued with oxygen support, gradually weaned down on oxygen requirement from as high as 4 L during hospitalization. Urinary tract infection was found complicated with bacteremia, with both urine and blood growing the same E. coli organism resistant to Unasyn, intermediate sensitivity to Augmentin. CT abdomen pelvis was obtained, and she was found to have minimal bilateral perinephric stranding, no obstructive uropathy. Incidentally noted cholelithiasis with contracted gallbladder. Increase of tissue in the perineum, she has had history of urinary bladder prolapse although has not had any overt rectal prolapse. Although may be increasing her risk of urinary tract infection. She was continued on additional IV antibiotics, subsequently again reassessed to be doing well, without evidence of ongoing sepsis, with resolution and normalized WBC count, without any recurrent neutropenia, afebrile, generally doing better, although still somewhat tired, but was assessed by PT. Has been doing well to be able to return home with continued home health. Home oxygen evaluation was ordered prior to discharge and oxygen arrangements made to be continued with recovery. ANNAILSA resolved. Please reassess respiratory status for recovery from pneumonia, reassess recovery of ANNALISA. Reassess urinary bladder prolapse with consideration of the complicated urinary tract infection with bacteremia. Consider further specialist assessment once recovering from acute illness, depending on goals of care. Reassess potassium, magnesium, replace as needed. Physical Exam Narrative: Accompanied by her two daughters Const: COMMON NORMALS: patient oriented x3 and alert GENERAL APPEARANCE: cooperative ORIENTATION/CONSCIOUSNESS: Yes awake HENMT: COMMON NORMALS: oropharynx normal Neck/C-Spine: COMMON NORMALS: no JVD Resp: COMMON NORMALS: normal respiratory effort and clear to auscultation bilaterally AUSCULTATION: clear to auscultation bilaterally Cardio: COMMON NORMALS: no JVD, regular rhythm, S1 normal heart sound present, S2 normal heart sound present and No murmurs present (Cardio) RHYTHM: regular rhythm HEART SOUNDS: S1 normal heart sound present and S2 normal heart sound present GI: COMMON NORMALS: Normal to inspection, nondistended, normoactive bowel sounds present, Soft to palpation and non-tender PALPATION: Yes Soft to palpation Extremity: COMMON NORMALS: no joint enlargement and no pedal edema Neuro: COMMON NORMALS: patient oriented x3 and moves all extremities SENSORIUM/ORIENTATION: Yes alert Skin: COMMON NORMALS: no rashes or lesions noted GENERAL SKIN EXAM: no rashes or lesions noted Discharge Data Studies Completed and Pending Completed Studies During Hospitalization Category Date Time Status CT kidney stone [id number] Routine Cat Scan 08/16/24 09:54 Completed XR chest 1V portable [id number] Stat Exams 08/14/24 19:35 Completed Pending at discharge Category Date Time Status Basic Metabolic Panel AM LABS Lab 08/19/24 04:00 Ordered Blood Culture Stat Lab 08/14/24 20:19 Results Complete Blood Count w/Auto AM LABS Lab 08/19/24 04:00 Ordered Sputum Culture and Gram Stain Stat Lab 08/14/24 22:02 Uncollected Radiology Impressions Chest X-Ray 08/14/24 19:35 IMPRESSION: 1. Left mid to lower lung field bronchopneumonia. 2. Emphysematous changes. 3. Cardiomegaly. 4. Aortic atherosclerotic calcifications. Abdomen/Pelvis CT 08/16/24 09:54 IMPRESSION: 1. No renal or ureteral obstruction. 2. Very minimal bilateral perinephric stranding. 3. Well distended urinary bladder with no calcifications. 4. No GI tract obstruction. 5. No ascites or adenopathy. 6. Cholelithiasis within a contracted gallbladder. 7. Increased soft tissue in the perineum. Correlate for possible rectal prolapse. Laboratory Results WBC 5.50 10^3/uL (3.29-11.43) 08/18/24 02:17 RBC 3.92 10^6/uL (3.85-5.65) 08/18/24 02:17 Hgb 11.50 g/dL (11.27-16.99) 08/18/24 02:17 Hct 35.5 % (36-47) L 08/18/24 02:17 MCV 90.6 fl (85-98) 08/18/24 02:17 MCH 29.3 pg (27-33) 08/18/24 02:17 MCHC 32.4 g/dL (30-55) 08/18/24 02:17 RDW 13.2 % (12.1-15.1) 08/18/24 02:17 Plt Count 148 10^3/cmm (157-399) L 08/18/24 02:17 MPV 11.4 fL (7.4-10.4) H 08/18/24 02:17 Neut % (Auto) 62.7 % 08/18/24 02:17 Lymph % (Auto) 23.8 % 08/18/24 02:17 Bradley % (Auto) 10.5 % 08/18/24 02:17 Eos % (Auto) 1.6 % 08/18/24 02:17 Baso % (Auto) 0.5 % 08/18/24 02:17 Neut # (Auto) 3.44 10^3/uL (1.8-7.7) 08/18/24 02:17 Lymph # (Auto) 1.3 10^3/uL (0.8-4.8) 08/18/24 02:17 Bradley # (Auto) 0.6 10^3/uL (0.2-0.9) 08/18/24 02:17 Eos # (Auto) 0.1 10^3/uL (0.0-0.8) 08/18/24 02:17 Baso # (Auto) 0.0 10^3/uL (0.0-0.1) 08/18/24 02:17 Nucleated RBC % (auto) 0 % 08/18/24 02:17 Nucleated RBCs # 0.0 /100WBC 08/18/24 02:17 Sodium 144 mmol/L (136-145) 08/18/24 02:17 Potassium 3.5 mmol/L (3.5-5.1) 08/18/24 02:17 Chloride 107 mmol/L (98-107) 08/18/24 02:17 Carbon Dioxide 29 mmol/L (22-29) 08/18/24 02:17 Anion Gap 11.5 (5-19) 08/18/24 02:17 BUN 15 mg/dL (8-23) 08/18/24 02:17 Creatinine 0.8 mg/dL (0.5-0.9) 08/18/24 02:17 GFR Calculation Not Reportable 08/18/24 02:17 Glucose 127 mg/dL (65-115) H 08/18/24 02:17 Calculated Osmolality 300 mOsm/kg (285-295) H 08/18/24 02:17 Lactic Acid 5.3 mmol/L (0.5-2.2) H* 08/14/24 19:10 Lactic Acid (Sepsis) 1.9 mmol/L (0.5-2.2) 08/14/24 20:20 Calcium 9.0 mg/dL (8.5-10.5) 08/18/24 02:17 Phosphorus 3.1 mg/dL (2.5-4.5) 08/15/24 05:15 Magnesium 1.7 mg/dL (1.7-2.3) 08/18/24 02:17 Total Bilirubin 0.4 mg/dL (0.15-1.2) 08/16/24 08:24 AST 15 U/L (0-32) 08/16/24 08:24 ALT 12 U/L (0-33) 08/16/24 08:24 Alkaline Phosphatase 68 U/L (35-105) 08/16/24 08:24 C-Reactive Protein 196.8 mg/L (0.0-4.9) H 08/15/24 05:15 Total Protein 5.5 g/dL (6.6-8.7) L 08/16/24 08:24 Albumin 2.6 g/dL (3.5-5.2) L 08/16/24 08:24 Globulin 2.9 g/dL (1.3-4.6) 08/16/24 08:24 Procalcitonin 56.53 ng/mL (0-0.5) H 08/14/24 19:10 Urine Color Yellow (Yellow) 08/15/24 03:20 Urine Appearance Cloudy (CLEAR) A 08/15/24 03:20 Urine pH 8.0 (5-7) A 08/15/24 03:20 Ur Specific Hulen 1.010 (1.005-1.030) 08/15/24 03:20 Urine Protein 3+ (Negative) A 08/15/24 03:20 Urine Glucose (UA) Negative (Normal) 08/15/24 03:20 Urine Ketones Negative (Negative) 08/15/24 03:20 Urine Blood Negative (Negative) 08/15/24 03:20 Urine Nitrate Positive (Negative) A 08/15/24 03:20 Urine Bilirubin Negative (Negative) 08/15/24 03:20 Urine Urobilinogen 0.2 mg/dL (Negative) 08/15/24 03:20 Ur Leukocyte Esterase 1+ (Negative) A 08/15/24 03:20 Urine RBC 0-2 /hpf (0-2) 08/15/24 03:20 Urine WBC 21-50 /hpf (0-5) H 08/15/24 03:20 Ur Squamous Epith Cells 6-10 /hpf (0-5) 08/15/24 03:20 Amorphous Sediment Not Reportable 08/15/24 03:20 Urine Bacteria 4+ /hpf (NONE) H 08/15/24 03:20 Hyaline Casts 11.57 /lpf 08/15/24 03:20 Nasal MRSA (PCR) Not detected (Not Detecte) 08/14/24 23:44 Vitals Last Vital Signs Temp 98.5 F 08/18/24 07:34 Pulse 65 08/18/24 08:00 Resp 14 08/18/24 08:00 BP 142/90 08/18/24 07:34 Pulse Ox 95 08/18/24 08:00 O2 Del Method Room Air 08/18/24 08:00 O2 Flow Rate 2 08/18/24 08:00 Discharge Plan Discharge Patient Disposition: Home Condition: Fair Prescriptions: New magnesium L-threonate 48 mg magnesium (667 mg) capsule 48 mg PO DAILY Qty: 90 0RF levofloxacin 750 mg tablet 750 mg PO DAILY 7 Days Qty: 7 0RF Continued sertraline 100 mg tablet 100 mg PO DAILY 90 Days Qty: 90 1RF omeprazole 20 mg capsule,delayed release(DR/EC) 20 mg PO QAM Qty: 90 3RF Changed furosemide 20 mg tablet 20 mg PO QAM PRN (Reason: Edema) 90 Days Qty: 90 1RF Discharge Orders: Discharge Order (Routine); Ordered 08/18/24 Ordered By: Froilan Brown Other Ambulatory Orders: DME: Oxygen (Order) Location: None Selected Ordered By: Froilan Brown Referrals: [facility] [Outside] Evelyn Jackson MD [Primary Care Provider] - 08/24/24 8:00 am Discharge Diet: Cardiac Discharge Activity: Oxygen as instructed Patient Instructions: Levofloxacin (By mouth) (Levaquin, Levaquin Leva-garret), Magnesium (By mouth), Acute Kidney Injury (DC), Urinary Tract Infection in Women (DC), Bacterial Pneumonia (DC), Hypoxia (ED) Activity Restrictions/Additional Instructions: Please complete antibiotic course with ciprofloxacin for E. coli urinary tract infection complicated by E. coli bacteremia. Stop levaquin and seek medical attention in case of any pain/swelling or inflammatinn of any joint/tendon or ligament and seek medical attention. Follow-up with your primary provider for reassessment of bladder prolapse and discuss the complicated infection you have had. Consider further options for the bladder prolapse to help reduce chance of recurrent UTI. Follow-up further with regards to possible rectal prolapse. Follow-up with your primary doctor for reassessment of recovery after RSV infection, secondary bacterial pneumonia. Follow-up with your primary doctor for reassessment of kidney function after mild kidney injury. Continue magnesium supplementation, please have your primary doctor recheck your magnesium and potassium levels. Discharge Attestations Time Spent in Discharge Care*: greater than 30 min Quality Metrics Clinical Quality Measures [ No reported AMI, CVA or VTE this stay] Coding Level of Care Code 06991 Total time (in minutes) for Discharge: 50 Diagnoses Cystocele with prolapse N81.4 Weakness R53.1 Sepsis A41.9 Pneumonia J18.9 ANNALISA (acute kidney injury) N17.9 Hypoxia R09.02
[2024-08-18 11:10] VITALS: BP 132/96; PULSE 62; RESP 17; TEMP 36.6; O2SAT 95
[2024-08-18 11:37] VITALS: BP 132/96; PULSE 62; RESP 17; TEMP 36.6; O2SAT 95
== END 2024-08-18 11:42 | disposition home health service (06) | DRG 871 ==
LOC: ER 22:11 → MEDSURG 22:28
PROVIDERS: Admitting Provider Internal Medicine; Emergency Provider Emergency Medicine; PCP Family Medicine; Visit Provider Internal Medicine
DX: A41.9 Sepsis, unspecified organism (principal); J15.9 Unspecified bacterial pneumonia; N17.9 Acute kidney failure, unspecified; N39.0 Urinary tract infection, site not specified; E87.20 Acidosis, unspecified; Z16.39 Resistance to other specified antimicrobial drug; R65.20 Severe sepsis without septic shock; N81.10 Cystocele, unspecified; R09.02 Hypoxemia; J10.1 Influenza due to other identified influenza virus with other respiratory manifestations; D70.9 Neutropenia, unspecified; B97.4 Respiratory syncytial virus as the cause of diseases classified elsewhere; E87.6 Hypokalemia; E83.42 Hypomagnesemia; B96.20 Unspecified Escherichia coli [E. coli] as the cause of diseases classified elsewhere; K80.20 Calculus of gallbladder without cholecystitis without obstruction; R32 Unspecified urinary incontinence; D69.6 Thrombocytopenia, unspecified; Z90.710 Acquired absence of both cervix and uterus; F32.A Depression, unspecified; M19.90 Unspecified osteoarthritis, unspecified site; E66.9 Obesity, unspecified; Z68.33 Body mass index [BMI] 33.0-33.9, adult; Z86.12 Personal history of poliomyelitis; E78.5 Hyperlipidemia, unspecified; E86.0 Dehydration
CPT/HCPCS: 36415; 71045; 74176; 80048; 80053; 81001; 83605; 83735; 84100; 84145; 85025; 86140; 87040; 87077; 87086; 87150; 87186; 87205; 94640; 94760; 96365; 96372; 97116; 97161; 99285; J0696; J1100; J1644; J1940; J2543; J3475; J7030; J7120; J7626

== ENCOUNTER → 2024-08-24 08:25 | Outpatient (BNVA) | payer MEDICARE, BC, SELFPAY | DX: Z09 Encounter for follow-up examination after completed treatment for conditions other than malignant neoplasm (principal); N17.9 Acute kidney failure, unspecified; N81.4 Uterovaginal prolapse, unspecified | CPT/HCPCS: 80053; 81000; 83735 ==

== ENCOUNTER 2024-09-14 16:03 | Emergency (ER) | payer MEDICARE, BC, SELFPAY ==
[2024-09-14 16:12] VITALS: BP 175/67; PULSE 72; RESP 18; TEMP 36.4; O2SAT 95
[2024-09-14 16:16] VITALS: PULSE 75; O2SAT 96
--- NOTE | 2024-09-14 16:16 | XR_ITS ---
WS: [id number] XR chest 1V portable [id number] REASON FOR EXAM: sob FINDINGS: Compared to the previous examination of 08/14/2024 there is a vague area of increased opacity over the periphery of the mid left lung. There appears to be overlying artifact and the patient is rotated to the left. There is moderate tortuosity the thoracic aorta and mild cardiomegaly. The interstitium is diffusely prominent and reticular with multiple areas of lucency compatible with central lobar emphysema. XR/XR chest 1V portable [id number] IMPRESSION: Apparent interval change compared to the most recent previous examination as ab ove which may be artifactual. If clinically warranted a repeat examination with better positioning and remova l of all artifact overlying the left chest tube exclude subacute pneumonitis.
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
[2024-09-14 17:28] VITALS: BP 183/69; PULSE 60; O2SAT 94
== END 2024-09-14 17:31 | disposition home or self-care (01) ==
PROVIDERS: Emergency Provider Emergency Medicine
DX: J18.9 Pneumonia, unspecified organism (principal); E78.5 Hyperlipidemia, unspecified; I10 Essential (primary) hypertension
CPT/HCPCS: 71045; 99284

== ENCOUNTER 2024-11-30 08:48 | Outpatient (CLI) | payer MEDICARE, BC, SELFPAY ==
--- NOTE | 2024-11-30 09:00 | CT_ITS ---
WS: [id number] CT chest wo con [id number] HISTORY: chronic dyspnea after viral illness; wheezing TECHNIQUE: Axial imaging performed through the thorax. Coronal and sagittal reformats are submitted. All CT scans at [facility] use at least one of these dose optimization techniques: automated exposure control; mA and/or kV adjustment per patient size (includes targeted exams where dose is matched to clinical indication); or iterative reconstruction. CONTRAST: None DLP: 358.42 mGy.cm COMPARISON: None available. Lungs and central airway: Lung volumes are decreased. There is a combination of bilateral diffuse interstitial thickening and scattered areas of groundglass attenuation and mosaic attenuation. Bilateral reticulonodular opacifications. No dense areas of consolidation. There are a few benign calcified granulomata. Pleura: Normal. No pleural effusion. Heart and pericardium: Moderate cardiomegaly. Mediastinum and katlin: No mediastinum or hilar adenopathy. Vessels: Moderate atherosclerotic plaque thoracic aorta. Pulmonary artery is dilated to 4.0 cm. Chest wall and lower neck: No soft tissue masses. Upper abdomen: Small hiatal hernia. Cholelithiasis. Suprarenal aortic calcifications. Splenic artery calcifications. Osseous structures: Mild increase in thoracic kyphosis. Healing rib fracture mid lateral RIGHT thorax, probably the seventh rib.. CT/CT chest wo con [id number] IMPRESSION: 1. Low lung volumes with pulmonary fibrosis and mild air trapping. 2. Scattered groundglass attenuation may be reversible and representing an acu te inflammatory process superimposed on pulmonary fibrosis. 3. Pulmonary hypertension. 4. No pulmonary mass. 5. Cholelithiasis without acute cholecystitis.
== END 2024-11-30 08:49 | disposition home or self-care (01) ==
PROVIDERS: PCP Family Medicine; Visit Provider Family Medicine
DX: Z99.81 Dependence on supplemental oxygen (principal); R09.02 Hypoxemia; R06.2 Wheezing; J84.10 Pulmonary fibrosis, unspecified; R91.8 Other nonspecific abnormal finding of lung field; I27.20 Pulmonary hypertension, unspecified; K80.20 Calculus of gallbladder without cholecystitis without obstruction; I51.7 Cardiomegaly; I70.0 Atherosclerosis of aorta; I28.1 Aneurysm of pulmonary artery; K44.9 Diaphragmatic hernia without obstruction or gangrene; I70.8 Atherosclerosis of other arteries; M40.294 Other kyphosis, thoracic region; S22.31XD Fracture of one rib, right side, subsequent encounter for fracture with routine healing; X58.XXXD Exposure to other specified factors, subsequent encounter
CPT/HCPCS: 71250

== ENCOUNTER 2024-12-14 08:55 | Outpatient (CLI) | payer MEDICARE, BC, SELFPAY | END 2024-12-14 08:56 | disposition home or self-care (01) | LOC: RT 08:58 | PROVIDERS: PCP Family Medicine; Visit Provider Family Medicine | DX: R09.02 Hypoxemia (principal); R94.2 Abnormal results of pulmonary function studies | CPT/HCPCS: 94010; 94726; 94729 ==

== ENCOUNTER → 2025-02-14 09:45 | Outpatient (BNVA) | payer MEDICARE, BC, SELFPAY | PROVIDERS: PCP Family Medicine; Visit Provider Internal Medicine | DX: J96.11 Chronic respiratory failure with hypoxia (principal); Z99.81 Dependence on supplemental oxygen; J84.9 Interstitial pulmonary disease, unspecified; K21.9 Gastro-esophageal reflux disease without esophagitis; R60.0 Localized edema; I10 Essential (primary) hypertension; E78.00 Pure hypercholesterolemia, unspecified; E66.9 Obesity, unspecified; Z68.30 Body mass index [BMI] 30.0-30.9, adult; J84.10 Pulmonary fibrosis, unspecified; F32.A Depression, unspecified | CPT/HCPCS: 36415; 82085; 82784; 82785; 84182; 86140; 86160; 86162; 86200; 86235; 86255; 86331; 86376; 86431; 86606; 86609; 99204 ==

== ENCOUNTER 2025-02-28 08:00 | Outpatient (CLI) | payer MEDICARE, BC, SELFPAY | END 2025-02-28 08:01 | disposition home or self-care (01) | LOC: RT 08:05 | PROVIDERS: PCP Family Medicine; Visit Provider Internal Medicine | DX: J84.9 Interstitial pulmonary disease, unspecified (principal) | CPT/HCPCS: 94618 ==

== ENCOUNTER 2025-03-21 12:33 | Outpatient (CLI) | payer MEDICARE, BC, SELFPAY ==
--- NOTE | 2025-03-21 12:45 | USCV_ITS ---
Johan Jillian Age: 89 Gender: F : 1935 Exam Date: 03/21/2025 12:44 Ordering Phys: Shruti Francisco MD Technologist: [place] [facility] [place] cp sob BP: 130 / 70 HR: 61 Rhythm: Sinus Technical Quality: Adequate MEASUREMENTS (Male / Female) Normal Values 2D ECHO LV Diastolic Diameter PLAX 4.3 cm 4.2 - 5.9 / 3.9 - 5.3 cm IVS Diastolic Thickness 1.3 cm 0.6 - 1.0 / 0.6 - 0.9 cm IVS Systolic Thickness 1.8 cm LVPW Diastolic Thickness 1.1 cm 0.6 - 1.0 / 0.6 - 0.9 cm LVPW Systolic Thickness 1.6 cm LVOT Diameter 1.8 cm LV Ejection Fraction 2D Teich 67.3 % LV Ejection Fraction MOD 4C 72.3 % LV Ejection Fraction MOD 2C 68.4 % LV Ejection Fraction 2C AL 68.5 % LA Diameter 4.2 cm RA Systolic Volume 4C AL 41.4 ml RA Systolic Volume 4C MOD 37.8 ml LA Sys Volume AL 101.8 cm cubed LA Sys Volume Index AL 54.2 cm cubed/m squared Aorta at Sinotubular Diameter 2.9 cm M-MODE LA Ao Ratio MM 1.2 AV Cusp Separation MM 1.9 cm DOPPLER AV Peak Velocity 186.0 cm/s LVOT Peak Velocity 99.0 cm/s AV Area Cont Eq vti 1.4 cm squared AV Area Cont Eq pk 1.3 cm squared MV Peak Velocity 99.0 cm/s MV Area PHT 3.6 cm squared Mitral E to A Ratio 0.6 TR Peak Velocity 310.0 cm/s TR Peak Gradient 38.4 mmHg TV Peak E Velocity 104.0 cm/s PV Peak Velocity 111.0 cm/s FINDINGS Left Ventricle Normal left ventricular size and systolic function, EF 67%. Mild LV septal hypertrophy. Normal diastolic function. Right Ventricle Normal right ventricular size and systolic function. Mild pulmonary hypertension, RVSP 41 mmHg. Right Atrium Normal right atrial size. Left Atrium Mildly increased left atrial size. Mitral Valve Mild mitral valve regurgitation. Aortic Valve Structurally normal trileaflet aortic valve. No aortic valve stenosis. No aortic valve regurgitation. Tricuspid Valve Mild tricuspid valve regurgitation. Pulmonic Valve No pulmonary valve stenosis. No pulmonary valve regurgitation. Pericardium Small pericardial effusion. Aorta Normal size aortic root and proximal ascending aorta. IVC Normal inferior vena cava. CONCLUSIONS 1. Normal biventricular size and function. LV EF 67%. 2. Mild pulmonary HTN 3. Small pericardial effusion 4. No significant valvular abnormalities Miguel Angel Monroy MD, FACC (Electronically Signed) Final Date: 22 March 2025 14:53 S
== END 2025-03-21 12:34 | disposition home or self-care (01) ==
LOC: RAD 12:34
PROVIDERS: PCP Family Medicine; Visit Provider Internal Medicine
DX: J84.9 Interstitial pulmonary disease, unspecified (principal); R06.02 Shortness of breath; I27.20 Pulmonary hypertension, unspecified; I31.39 Other pericardial effusion (noninflammatory)
CPT/HCPCS: 93306

== ENCOUNTER 2025-03-27 11:41 | Outpatient (CLI) | payer MEDICARE, BC, SELFPAY ==
--- NOTE | 2025-03-27 11:44 | CTR_ITS ---
PROCEDURE INFORMATION: Exam: CT Chest Without Contrast, Diagnostic, High Resolution Exam date and time: 03/27/2025 12:09 PM Age: 89 years old Clinical indication: Shortness of breath; Additional info: Ion protocol TECHNIQUE: Imaging protocol: Diagnostic computed tomography of the chest without contrast. Exam was performed with high resolution protocol. Radiation optimization: All CT scans at this facility use at least one of these dose optimization techniques: automated exposure control; mA and/or kV adjustment per patient size (includes targeted exams where dose is matched to clinical indication); or iterative reconstruction. COMPARISON: CT chest con [id number] 11/30/2024 9:11 AM RADIATION DOSE METRICS: Total DLP (mGy-cm): 1132.09 FINDINGS: Lungs: In the left upper lobe there is focal ground-glass opacity and mild bronchiectasis or bronchiolectasis. No honeycombing is seen. Slight interstitial thickening is seen in the subpleural lung bilaterally, most prominent in the left upper lobe. There is a calcified left lower lobe pulmonary nodule close to the major fissure. Pleural spaces: Unremarkable. No pneumothorax. No pleural effusion. Heart: Unremarkable. No cardiomegaly. No pericardial effusion. Vasculature: Main pulmonary artery measures 3.3 cm in caliber which is enlarged, consistent with pulmonary hypertension. Lymph nodes: Unremarkable. No enlarged lymph nodes. Gallbladder and biliary ducts: Gallstones are noted. Bones/joints: Unremarkable. No acute fracture. Soft tissues: Unremarkable. CT/CT chest w/o HI-Res(Pulm Only) IMPRESSION: 1. Suggestion of mild interstitial lung disease, not specific for UIP. Focal ground-glass opacity in the left upper lobe may represent active pneumonitis. 2. Enlarged main pulmonary artery consistent with pulmonary hypertension. 3. Cholelithiasis.
== END 2025-03-27 11:42 | disposition home or self-care (01) ==
LOC: RAD 11:41
PROVIDERS: PCP Family Medicine; Visit Provider Internal Medicine
DX: J84.9 Interstitial pulmonary disease, unspecified (principal); R91.1 Solitary pulmonary nodule; J47.9 Bronchiectasis, uncomplicated; I27.20 Pulmonary hypertension, unspecified; K80.20 Calculus of gallbladder without cholecystitis without obstruction
CPT/HCPCS: 71250

== ENCOUNTER → 2025-04-11 09:44 | Outpatient (BNVA) | payer MEDICARE, BC, SELFPAY | PROVIDERS: PCP Family Medicine; Visit Provider Internal Medicine | DX: J84.10 Pulmonary fibrosis, unspecified (principal); J84.9 Interstitial pulmonary disease, unspecified; K21.9 Gastro-esophageal reflux disease without esophagitis; J90 Pleural effusion, not elsewhere classified | CPT/HCPCS: 99212 ==

== ENCOUNTER → 2025-05-15 15:59 | Outpatient (BNVA) | payer MEDICARE, BC, SELFPAY | PROVIDERS: PCP Family Medicine; Referring Provider Internal Medicine; Visit Provider Internal Medicine Cardiovascular Disease | DX: R07.9 Chest pain, unspecified (principal); R94.31 Abnormal electrocardiogram [ECG] [EKG] | CPT/HCPCS: 93005 ==

== ENCOUNTER 2025-06-20 10:35 | Outpatient (CLI) | payer MEDICARE, BC, SELFPAY ==
--- NOTE | 2025-06-20 10:41 | XR_ITS ---
WS: [id number] XR wrist RT min 3V* [id number] REASON FOR EXAM: fall, pain and swelling FINDINGS: Minimally displaced oblique fractures of the base of the ulnar styloid. Minimally comminuted transverse fracture of the distal radial metaphysis with extension into the joint surface medially. There is mild foreshortening of the radius with overlap of the fracture fragments. Mild ventral angulation at the radial fracture site. XR/XR wrist RT min 3V* [id number] IMPRESSION: Right wrist fracture.
--- NOTE | 2025-06-20 10:41 | XR_ITS ---
WS: [id number] XR shoulder RT min 2V* [id number] REASON FOR EXAM: pain and swelling FINDINGS: No acute fracture. Moderate osteoarthritis of the acromioclavicular and glenohumeral joints. Deformity of the humeral head and neck compatible with old healed fracture. XR/XR shoulder RT min 2V* [id number] IMPRESSION: No acute abnormality.
--- NOTE | 2025-06-20 10:41 | XR_ITS ---
WS: [id number] [place] [id number] REASON FOR EXAM: Fall, pain and swelling FINDINGS: Humerus is intact without fracture. XR/[place] [id number] IMPRESSION: No acute abnormality.
== END 2025-06-20 10:36 | disposition home or self-care (01) ==
LOC: RAD 10:37
PROVIDERS: PCP Family Medicine; Visit Provider Registered Nurse Neonatal Intensive Care
DX: S52.591A Other fractures of lower end of right radius, initial encounter for closed fracture (principal); S52.611A Displaced fracture of right ulna styloid process, initial encounter for closed fracture; W19.XXXA Unspecified fall, initial encounter; M19.011 Primary osteoarthritis, right shoulder; Z87.81 Personal history of (healed) traumatic fracture
CPT/HCPCS: 73030; 73060; 73110

== ENCOUNTER → 2025-06-26 09:18 | Outpatient (BNVA) | payer MEDICARE, BC, SELFPAY | PROVIDERS: PCP Family Medicine; Visit Provider Orthopaedic Surgery | DX: S59.201A Unspecified physeal fracture of lower end of radius, right arm, initial encounter for closed fracture (principal); W18.39XA Other fall on same level, initial encounter | CPT/HCPCS: 73110; 99204 ==

== ENCOUNTER 2025-06-27 08:56 | Day surgery (SDC) | payer MEDICARE, BC, SELFPAY ==
[2025-06-27] VITALS (11 sets, daily range): BP systolic 144–184; BP diastolic 55–75; PULSE 58–75; RESP 16–18; TEMP 36.3–36.8; O2SAT 92–97; BMI 30.6
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
--- NOTE | 2025-06-27 10:24 | W.PM.OPSUD ---
Surgery/Procedure H&P Update DATE OF PROCEDURE: June 27, 2025 DATE H&P PERFORMED: 06/20/25 H&P UPDATE INFORMATION: I have reviewed H&P completed within last 30 days, I have examined patient prior to procedure and No changes to prior documentation PLANNED PROCEDURE: Operation Date: 06/27/25 12:00 Proposed Procedures p Closed Reduction RIGHT Wrist(Right) - Pieter Bernal MD s Percutaneous Pinning RIGHT Wrist(Right) - Pieter Bernal MD
[2025-06-27] MEDS: fentaNYL 50 mcg/mL INJ 2mL IVP (11:25)
--- NOTE | 2025-06-27 11:31 | PM.OP ---
Operative Report Date of procedure: June 27, 2025 Surgeon: Pieter Bernal MD Procedure: Preoperative diagnosis: Fracture distal right radius Postoperative diagnosis: Same Procedure: Closed reduction percutaneous pinning of right wrist fracture Surgeon: Pieter Bernal MD Anesthesia: General Complication: Small skin tear dorsal surface of the wrist Indications: Jillian is an 89-year-old white female who fell approximately 7 to 10 days ago injuring her right wrist. She was seen by her primary care provider who diagnosed a distal radius fracture as collapsed and dorsally angulated. Placed her in a sugar-tong splint referred her onto the orthopedic since her dominant arm in radius is out of position with dorsal angulation and loss of radial length line as well as shortening of the radius. Therefore at this time she was offered a closed reduction percutaneous pinning of the fracture to help improve position and in hopes to keep function of her right wrist and hand as it was prior to the injury. All risk benefits treatment terms were discussed with she and her daughter and they are agreeable to this at this time. Procedure: After obtaining her consent patient taken to the operative room placed in the operative table supine position general anesthetic administered. Once good anesthesia was achieved pneumatic cuffs placed on proximal right arm. Right splint was removed and right arm was prepped and draped usual fashion. After surgical timeout under gentle manipulation and traction fracture was reduced. During this portion of the small superficial layer of skin tear with And dorsal radius Subsequently once adequate reduction achieved both on AP and lateral fluoroscopic views within the operative room 2.045 K wires were driven from the radial styloid distal to proximal radial to ulnar penetrating to cortical surfaces. Interoperative fluoroscopy demonstrated adequate reduction and pinning of the fracture. At this point pin balls were placed on the pins and the pins were cut out for appropriate length. Skin tear was treated with a Xeroform dressing. Sterile gauze dressing was placed over this. Sterile Webril was applied the arm. Patient subsequently was placed in a sugar-tong splint with Jose wrap fully in place and appropriate molding until casting material is hardened. Patient was then awakened transferred to cover room in stable condition
--- NOTE | 2025-06-27 12:37 | ANE.PACU2 ---
Inpatient post-anesthesia follow up: Airway intact: Yes Vital signs: Temperature 98.3 F Pulse Rate 73 Respiratory Rate 16 Blood Pressure 159/63 Pulse Oximetry 94 Oxygen Delivery Me thod Room Air Oxygen Flow Rate Fraction of Inspir ed Oxygen Hydration adequate: Yes Nausea and vomiting: No Pain level: 1 Mental status: Baseline
--- NOTE | 2025-06-27 13:11 | XR_ITS ---
WS: [id number] Right wrist, C-arm fluoroscopy views, 06/27/2025 Clinical Data: Closed reduction percutaneous pinning of right wrist fractu Comparison: Right wrist, 06/26/2025 Findings: Dr. Bernal inserted 2 orthopedic pins to reduce the distal right radial fracture. XR/XR wrist RT min 3V* [id number] Impression: Internal fixation of distal right radial fracture.
== END 2025-06-27 12:37 | disposition home or self-care (01) ==
PROVIDERS: PCP Family Medicine; Visit Provider Orthopaedic Surgery
PROC: (CPT 25606; principal; 2025-06-27 11:50)
PROC: (CPT 25606; 2025-06-27 11:50)
DX: S52.501A Unspecified fracture of the lower end of right radius, initial encounter for closed fracture (principal); W18.30XA Fall on same level, unspecified, initial encounter; K21.9 Gastro-esophageal reflux disease without esophagitis; Z79.891 Long term (current) use of opiate analgesic; Z99.81 Dependence on supplemental oxygen; E78.5 Hyperlipidemia, unspecified; E66.9 Obesity, unspecified; Z68.30 Body mass index [BMI] 30.0-30.9, adult; I10 Essential (primary) hypertension; F32.A Depression, unspecified; J84.9 Interstitial pulmonary disease, unspecified
CPT/HCPCS: 25606; 73110; 76000; C1713; J1100; J2405; J2704; J3010; J7030; J9999

== ENCOUNTER → 2025-07-11 14:44 | Outpatient (BNVA) | payer MEDICARE, BC, SELFPAY | PROVIDERS: PCP Family Medicine; Visit Provider Orthopaedic Surgery | DX: S52.531D Colles' fracture of right radius, subsequent encounter for closed fracture with routine healing (principal); X58.XXXD Exposure to other specified factors, subsequent encounter | CPT/HCPCS: 73110; 99024 ==